=== PATIENT | female | born 1965 ===

== ENCOUNTER 2020-06-13 10:07 | Outpatient (CLI) | payer MEDICAID ==
[~2020-06-13] VITALS: Ht 167.6 cm; Wt 78.9 kg
[2020-06-13 10:35] VITALS: BP 142/83
--- NOTE | 2020-06-13 13:30 | Consultation ---
DATE OF CONSULTATION: 06/13/2020 CHIEF COMPLAINT: 1. Abdominal pain. 2. Referring for screening colonoscopy. HISTORY OF PRESENT ILLNESS: This is a 54-year-old female was referred to us for evaluation for screening colonoscopy, also complained of some abdominal pain, and on and off rectal bleeding. PAST MEDICAL HISTORY: 1. Hypertension. 2. Hemorrhoids. 3. Diabetes. 4. Hypercholesteremia. 5. Chronic back pain. PAST SURGICAL HISTORY: Tummy tuck, ventral hernia repair, breast implantation. MEDICATIONS: Please see medication reconciliation list. FAMILY HISTORY: No family history of GI malignancy. SOCIAL HISTORY: The patient denies any tobacco, alcohol, or drug abuse. ALLERGIES: No known drug allergies. REVIEW OF SYSTEMS: Positive for abdominal pain and rectal bleeding. PHYSICAL EXAMINATION: VITAL SIGNS: Temperature 97.6, blood pressure 142/83, pulse 109, respirations 20. Height is 5 feet 6 inches, weight is 174. HEENT: Normocephalic and atraumatic. Sclerae anicteric. NECK: Supple. No evidence of obvious lymphadenopathy. CARDIOVASCULAR: Regular rate and rhythm. Plus S1 and S2. LUNGS: Clear to auscultation bilaterally. ABDOMEN: Positive bowel sounds. Soft and nontender. No rebound. No guarding. No peritoneal sign. EXTREMITIES: No cyanosis. No clubbing. No edema. ASSESSMENT AND PLAN: This is a 54-year-old female referring for screening colonoscopy, also have some rectal bleeding possibly from hemorrhoids. The patient was informed about the risks and benefits of procedure and prep was explained to her. We will schedule her when authorization is obtained. Edward Gustafson M.D. DR: Nathan JOB#: [id number] CC:
[2020-06-13] MEDS ORDERED: NORCO 10-325 T1 EACH ORAL (14:48)
[2020-06-13] MEDS ORDERED: TRAZODONE HCL50 MG ORAL (14:48)
[2020-06-13] MEDS ORDERED: ATORVASTATIN CA20 MG ORAL (14:48)
== END 2020-06-13 12:07 | disposition home or self-care (01) ==
LOC: PAN 10:07
DX: R10.9 Unspecified abdominal pain (principal); I10 Essential (primary) hypertension; E11.9 Type 2 diabetes mellitus without complications; E78.00 Pure hypercholesterolemia, unspecified; K62.5 Hemorrhage of anus and rectum
CPT/HCPCS: G0463